=== PATIENT | male | born 1975 | race Caucasian/White ===

== ENCOUNTER 2017-09-16 11:34 | Day surgery (SDC) | payer OTHER ==
[~2017-09-16] VITALS: Ht 185.4 cm; Wt 97.3 kg
[2017-09-16] MEDS ORDERED: HYDR25TA6 PO (16:05)
[2017-09-16] MEDS ORDERED: IPRA4AER IH (16:05)
[2017-09-16] MEDS ORDERED: SIMV10TA3 PO (16:05)
[2017-09-16] MEDS ORDERED: ASPI-621 PO (16:05)
[2017-09-16] MEDS ORDERED: AMIT25TA PO (16:05)
[2017-09-16] MEDS ORDERED: POTA10TA6 PO (16:05)
[2017-09-16] MEDS ORDERED: ALBU8.5H8 INH (16:05)
[2017-09-16] MEDS ORDERED: LEVO5TAB29 PO (16:05)
[2017-09-16] MEDS ORDERED: MORPHINE SULFATE 4 MG/ML, 1ML IVPush PRN (16:30)
[2017-09-16] MEDS ORDERED: SODIUM CHLORIDE 0.9% 1,000ML IVBOLUS ONE (16:30)
[2017-09-16] MEDS ORDERED: ONDANSETRON 2MG/ML, 2ML IVPush ONE (16:30)
[2017-09-16] MEDS ORDERED: SODIUM CHLORIDE FLUSH 10ML SYR IVF ONE (16:30)
[2017-09-16 16:42] LABS: BASOPHILS # (AUTO) 0.03 x10^3/uL (0-0.1); BASOPHILS % (AUTO) 0 % (0-1); EOSINOPHILS # (AUTO) 0.16 x10^3/uL (0-0.4); EOSINOPHILS % (AUTO) 2 % (1-7); LYMPHOCYTES % (AUTO) 24 % (22-44); MD NO; MEAN CORPUSCULAR VOLUME 88.3 fL (81-97); MEAN PLATELET VOLUME 7.2 fL (7.4-10.4); MONOCYTES % (AUTO) 9 % (2-9); NEUTROPHILS % (AUTO) 65 % (42-75); PLATELET COUNT 360 x10^3/uL (130-400); RED BLOOD COUNT 5.48 x10^6/uL (4.38-5.82); RED CELL DISTRIBUTION WIDTH 12.9 % (9.4-14.8)
[2017-09-16 16:49] LABS: ALANINE AMINOTRANSFERASE 67 U/L (12-78); ANION GAP 8 mmol/L (5-15); CHLORIDE 100 mmol/L (98-107); CREATININE 1.42 mg/dL (0.7-1.3)
[2017-09-16 16:52] LABS: ALKALINE PHOSPHATASE 87 U/L (45-117); BILIRUBIN,TOTAL 0.5 mg/dL (0.2-1.0); TOTAL PROTEIN 7.5 g/dL (6.4-8.2)
[2017-09-16] MEDS ORDERED: BUPIVACAINE/PF 0.5% ONE (17:07)
[2017-09-16] MEDS ORDERED: EPINEPHRINE 1 MG/ML, 1ML ONE (17:07)
[2017-09-16] MEDS ORDERED: MIDAZOLAM 1 MG/ML, 2ML ONE (17:10)
[2017-09-16] MEDS ORDERED: FENTANYL PF 250 MCG/5ML ONE (17:11)
[2017-09-16] MEDS ORDERED: SUCCINYLCHOLINE 20 MG/ML, 10ML ONE (17:13)
[2017-09-16] MEDS ORDERED: ROCURONIUM 10 MG/ML,10ML ONE (17:13)
[2017-09-16] MEDS ORDERED: PROPOFOL 10 MG/ML, 20ML ONE (17:13)
[2017-09-16] MEDS ORDERED: GLYCOPYRROLATE 0.4 MG/2 ML, 2ML ONE ×2 (17:15→18:14)
[2017-09-16] MEDS ORDERED: NEOSTIGMINE 1 MG/ML, 10ML ONE (17:15)
[2017-09-16] MEDS ORDERED: OXYcodone 5 MG/5 ML ORAL.SOL UDC PO PRN (17:30)
[2017-09-16] MEDS ORDERED: ACETAMINOPHEN 325 MG TABLET PO PRN (17:30)
[2017-09-16] MEDS ORDERED: ONDANSETRON 2MG/ML, 2ML IVPush PRN ×2 (17:30→18:30)
[2017-09-16] MEDS ORDERED: PROMETHAZINE 12.5 MG SUPP PR PRN (17:30)
[2017-09-16] MEDS ORDERED: FENTANYL PF 100 MCG/2ML IV PRN (17:30)
[2017-09-16] MEDS ORDERED: MEPERIDINE/PF 25MG/0.5ML IVPush PRN (17:30)
[2017-09-16] MEDS ORDERED: CEFOTETAN PMX 2GM/50ML 50 ML IV ONE (17:30)
[2017-09-16] MEDS ORDERED: LABETALOL 5MG/ML, 20ML IV PRN (17:30)
[2017-09-16] MEDS ORDERED: hydrALAzine 20 MG/ML, 1ML IV PRN (17:30)
[2017-09-16] MEDS ORDERED: HYDROmorphone 1 MG/ML, 1ML IV PRN (17:30)
[2017-09-16] MEDS ORDERED: BUPIVACAINE/PF-EPI 0.5% 1:200K IM ONE (18:01)
[2017-09-16] MEDS ORDERED: LACTATED RINGERS 1,000 ML IV SCH (18:27)
[2017-09-16] MEDS ORDERED: KETOROLAC 30 MG/1 ML IVPush PRN (18:30)
[2017-09-16] MEDS ORDERED: HYDROmorphone 2 MG/ML, 1ML IVPush PRN (18:30)
[2017-09-16] MEDS ORDERED: DIPHENHYDRAMINE 50 MG/ML, 1ML IVPush PRN (18:30)
[2017-09-16] MEDS ORDERED: KETOROLAC 30 MG/1 ML ONE (18:37)
[2017-09-16] MEDS ORDERED: KETOROLAC 30 MG/1 ML IVPush ONE (19:00)
[2017-09-16] MEDS ORDERED: ALBUTEROL/IPRATROPIUM 2.5MG/0.5MG, 3 ML HHN SCH (19:00)
[2017-09-16] MEDS ORDERED: IBUP-1222 PO (19:34)
[2017-09-16] MEDS ORDERED: ACET325T14 PO (19:36)
[2017-09-16] MEDS ORDERED: PROMETHAZINE 25 MG/ML, 1ML IM PRN (22:30)
[2017-09-17 00:31] VITALS: BP 122/73
[2017-09-17 04:46] VITALS: BP 122/72
[2017-09-17 07:47] VITALS: BP 137/83
[2017-09-17] MEDS ORDERED: POTASSIUM CHLORIDE 40 MEQ in LACTATED RINGERS 1,000 ML IV SCH (18:27)
== END 2017-09-17 08:10 ==
LOC: ED 16:49 → UNDOADMIN 17:02 → EDIP 17:02 → SDC 18:32 → EDIP 19:26 → 4NOR 19:26 → SDC 09-17 08:10 → UNDODISIN 09-17 08:10
PROVIDERS: ATTEND Thoracic Surgery (Cardiothoracic Vascular Surgery)
DX: K36 Other appendicitis (principal); J45.909 Unspecified asthma, uncomplicated; E78.5 Hyperlipidemia, unspecified
CPT/HCPCS: 36415; 44970; 80053; 83690; 85025; 88304; J0171; J0330; J1885; J2250; J2704; J2710; J3010; J3480; J3490; J7030; J7120; S0074

== ENCOUNTER 2017-11-13 10:38 | Day surgery (SDC) | payer OTHER ==
[~2017-11-13] VITALS: Ht 185.4 cm; Wt 92.7 kg
[~2017-11-13 10:38] MED LIST: ACET325T14 PO; ALBU8.5H8 INH; AMIT25TA PO; ASPI-621 PO; HYDR25TA6 PO; IBUP-1222 PO; IPRA4AER IH; LEVO5TAB29 PO; POTA10TA6 PO; SIMV10TA3 PO
[2017-11-13 11:06] VITALS: BP 138/104
== END 2017-11-13 12:45 | disposition home or self-care (01) ==
LOC: CACL 10:38
PROVIDERS: ATTEND Internal Medicine Cardiovascular Disease
DX: R55 Syncope and collapse (principal); F41.9 Anxiety disorder, unspecified; I10 Essential (primary) hypertension; J45.909 Unspecified asthma, uncomplicated; E78.2 Mixed hyperlipidemia; K76.0 Fatty (change of) liver, not elsewhere classified; Z79.82 Long term (current) use of aspirin; Z88.5 Allergy status to narcotic agent
CPT/HCPCS: 33282; 33284; C1764